=== PATIENT | female | born 1970 | race Caucasian/White ===

== ENCOUNTER → 2016-08-09 | Outpatient (CLI) | payer BC ==
[~2016-08-09] VITALS: Ht 167.6 cm; Wt 65.8 kg
[~2016-08-09] MED LIST: ACET-654 PO; ADVA230A INH; COLA100C PO; COLA50CA3 PO; DICY20TA PO; IBUP200C PO; LINZ145C PO; MOM30SS PO; NS 1,000 ML IV SCH; SING10TA32 PO; SULF400T PO; ULTR50TA PO; VITA200016 PO
--- NOTE | 2016-08-09 08:37 | ROOR ---
Patient Name: Connie Chao Procedure Date: 08/09/2016 8:14 AM Date of : 1970 Age: 46 Room: [facility] Gender: Female Note Status: Finalized Procedure: Colonoscopy Indications: High risk colon cancer surveillance: Personal history of colonic polyps, Last colonoscopy: May 2013 Providers: Reza DANIELSON MD Referring MD: Marina Gipson DO Requesting Provider: Medicines: Monitored Anesthesia Care Complications: No immediate complications. Procedure: Pre-Anesthesia Assessment: - The heart rate, respiratory rate, oxygen saturations, blood pressure, adequacy of pulmonary ventilation, and response to care were monitored throughout the procedure. The Colonoscope was introduced through the anus and advanced to the cecum, identified by appendiceal orifice and ileocecal valve. The colonoscopy was performed without difficulty. The patient tolerated the procedure well. The quality of the bowel preparation was good. Findings: The perianal and digital rectal examinations were normal. (Exam: Complete, Prep: Good or Excellent.) Small Internal Hemorrhoids. The entire examined colon appeared normal on direct and retroflexion views. Impression: - (Exam: Complete, Prep: Good or Excellent.) - Small Internal Hemorrhoids. - The entire examined colon is normal on direct and retroflexion views. - No specimens collected. Recommendation: - Continue present medications. - Repeat colonoscopy in 5 years for surveillance based on personal history of previous adenomatous polyps. Reza Danielson MD Reza DANIELSON MD 08/09/2016 8:36:49 AM This report has been signed electronically. Number of Addenda: 0 Note Initiated On: 08/09/2016 8:14 AM Estimated Blood Loss: Estimated blood loss: none.
[2016-08-09 08:55] VITALS: BP 123/74
== END | disposition home or self-care (01) ==
LOC: M OPP 07:40
PROVIDERS: ATTEND Internal Medicine Gastroenterology
DX: Z12.11 Encounter for screening for malignant neoplasm of colon (principal); K64.8 Other hemorrhoids; J45.909 Unspecified asthma, uncomplicated; Z88.1 Allergy status to other antibiotic agents; Z79.899 Other long term (current) drug therapy; Z79.51 Long term (current) use of inhaled steroids
CPT/HCPCS: 99156; G0105

== ENCOUNTER 2016-10-21 01:24 | Emergency (ER) | payer BC ==
[~2016-10-21] VITALS: Ht 167.6 cm; Wt 65.8 kg
[~2016-10-21 01:24] MED LIST changes: -COLA100C PO; +COLA100C3 PO; -NS 1,000 ML IV SCH
[2016-10-21 01:29] VITALS: BP 134/92
[2016-10-21] MEDS ORDERED: FEXO180T58 (01:35)
[2016-10-21] MEDS ORDERED: MONT10TA2 (01:35)
[2016-10-21] MEDS ORDERED: AZIT250T3 (01:35)
[2016-10-21] MEDS ORDERED: IBUPROFEN 600 MG TAB PO ONE (04:00)
[2016-10-21] MEDS ORDERED: ZOFR4TAB3 PO (04:43)
[2016-10-21] MEDS ORDERED: AUGM875T27 PO (04:43)
[2016-10-21] MEDS ORDERED: NORCO 5/325MG TABLET (BULK FOR ED) PO ONE (04:45)
[2016-10-21] MEDS ORDERED: cefTRIAXone SOD 1 GM VIAL (J0696) IM ONE (04:45)
== END 2016-10-21 05:25 | disposition home or self-care (01) ==
LOC: M ED 02:46
DX: J01.00 Acute maxillary sinusitis, unspecified (principal); Z79.899 Other long term (current) drug therapy; Z79.51 Long term (current) use of inhaled steroids; Z88.1 Allergy status to other antibiotic agents; Z88.2 Allergy status to sulfonamides
CPT/HCPCS: 96372; 99281; J0696

== ENCOUNTER 2018-09-01 13:42 | Day surgery (SDC) | payer BC ==
[~2018-09-01] VITALS: Ht 167.6 cm; Wt 68.5 kg
[~2018-09-01 13:42] MED LIST changes: +AUGM875T28 PO; +AZIT-12; -COLA100C3 PO; +COLA100C5 PO; +FEXO180T58; +LINZ145C; +MONT10TA2; +MULT1TAB10 PO; +PROAAER10 INH; +TUMS500C PO; +ZOFR4TAB14 PO
[2018-09-01] MEDS ORDERED: NS 1,000 ML IV ONE (15:15)
[2018-09-01] MEDS ORDERED: PROPOFOL 200 MG/20 ML VIAL As Ordered ONE (16:32)
[2018-09-01] MEDS ORDERED: LIDOCAINE 2% INJ 100 MG/5 ML SDV (FOR ANES.) As Ordered ONE (16:32)
--- NOTE | 2018-09-01 17:15 | ROOR ---
Patient Name: Connie Chao Procedure Date: 09/01/2018 4:59 PM Date of : 1970 Age: 48 Room: [facility] Gender: Female Note Status: Finalized Procedure: Upper GI endoscopy Indications: Heartburn, Suspected esophageal reflux, Chronic cough Providers: Reza DANIELSON MD Referring MD: Marina Gipson DO Requesting Provider: Medicines: Monitored Anesthesia Care Complications: No immediate complications. Procedure: Pre-Anesthesia Assessment: - The heart rate, respiratory rate, oxygen saturations, blood pressure, adequacy of pulmonary ventilation, and response to care were monitored throughout the procedure. The Endoscope was introduced through the mouth, and advanced to the second part of duodenum. The upper GI endoscopy was accomplished without difficulty. The patient tolerated the procedure well. Findings: The examined esophagus was normal. A single localized erosion was found in the prepyloric region of the stomach. Biopsies were taken with a cold forceps for histology. The exam of the stomach was otherwise normal. The examined duodenum was normal. Impression: - Normal esophagus. - A single tiny (1-2 mm) gastric erosion in the antrum. Biopsied. - The stomach is otherwise normal. - Normal examined duodenum. Recommendation: - Follow an antireflux regimen. - Use Prilosec (omeprazole) 20 mg PO daily for 3 months. - (the script was sent to your pharmacy on file) Reza Danielson MD Reza DANIELSON MD 09/01/2018 5:15:22 PM This report has been signed electronically. Number of Addenda: 0 Note Initiated On: 09/01/2018 4:59 PM Estimated Blood Loss: Estimated blood loss: none.
[2018-09-01 17:30] VITALS: BP 138/86
== END 2018-09-01 17:40 | disposition home or self-care (01) ==
LOC: M OPP 13:42
PROVIDERS: ATTEND Internal Medicine Gastroenterology
DX: K25.9 Gastric ulcer, unspecified as acute or chronic, without hemorrhage or perforation (principal); R12 Heartburn; R05 Cough; Z88.8 Allergy status to other drugs, medicaments and biological substances

== ENCOUNTER → 2020-11-14 | Outpatient (REF) | payer BC ==
[~2020-11-14] MED LIST changes: +MONT10TA10; -MONT10TA2
[2020-11-14 12:27] LABS: APPEARANCE, URINE CLEAR (CLEAR); BACTERIA, URINE AUTO NEGATIVE (NEGATIVE); BILIRUBIN, URINE AUTO NEGATIVE (NEGATIVE); BLOOD, URINE BLOOD NEGATIVE (NEGATIVE); COLOR, URINE YELLOW (YELLOW); GLUCOSE, URINE (UA) AUTO NEGATIVE (NEGATIVE); KETONE, URINE AUTO NEGATIVE (NEGATIVE); LEUKOCYTE ESTERASE, URINE AUTO NEGATIVE (NEGATIVE); NITRITE, URINE AUTO NEGATIVE (NEGATIVE); PROTEIN, URINE AUTO NEGATIVE (NEGATIVE); RBC, URINE AUTO 0 /HPF (0-3); SPECIFIC GRAVITY URINE AUTO 1.017 (1.002-1.035); SQUAMOUS EPITHELIAL CELL UR AU 2 /HPF (0-6); UROBILINOGEN, URINE AUTO 0.2 mg/dL (0.0-2.0); WBC, URINE AUTO 0 /HPF (0-3)
== END ==
LOC: M LAB REF 11:50
PROVIDERS: ATTEND Obstetrics & Gynecology
DX: N39.0 Urinary tract infection, site not specified (principal)

== ENCOUNTER → 2022-02-13 | Outpatient (CLI) | payer BC ==
[~2022-02-13] MED LIST changes: +FEXO-117; -FEXO180T58; -MONT10TA10; +MONT10TA97; +MONT10TA97 PO; +VITMTA PO
== END ==
LOC: M LABSMTC 10:17
PROVIDERS: ATTEND Anesthesiology
DX: Z01.812 Encounter for preprocedural laboratory examination (principal); Z20.822 Contact with and (suspected) exposure to COVID-19

== ENCOUNTER 2022-02-18 07:26 | Day surgery (SDC) | payer BC ==
[~2022-02-18] VITALS: Ht 167.6 cm; Wt 85.3 kg
[~2022-02-18 07:26] MED LIST changes: +NS 1,000 ML IV ONE
[2022-02-18] MEDS ORDERED: LIDOCAINE 2% 100MG/5ML SDV (FOR ANES.) As Ordered ONE (08:35)
[2022-02-18] MEDS ORDERED: propofoL 200 MG/20 ML VIAL As Ordered ONE ×2 (08:35→08:46)
[2022-02-18 09:25] VITALS: BP 148/95
== END 2022-02-18 09:28 | disposition home or self-care (01) ==
LOC: M OPP 07:26
PROVIDERS: ATTEND Internal Medicine Gastroenterology
DX: Z12.11 Encounter for screening for malignant neoplasm of colon (principal); Z86.010 Personal history of colon polyps; K64.8 Other hemorrhoids; J45.909 Unspecified asthma, uncomplicated; Z88.1 Allergy status to other antibiotic agents; Z88.2 Allergy status to sulfonamides; Z88.8 Allergy status to other drugs, medicaments and biological substances; Z79.899 Other long term (current) drug therapy; Z82.49 Family history of ischemic heart disease and other diseases of the circulatory system; Z83.3 Family history of diabetes mellitus

== ENCOUNTER 2023-01-07 07:00 | Outpatient (RCR) | payer BC ==
[~2023-01-07 07:00] MED LIST changes: +MONT-5 PO; -NS 1,000 ML IV ONE; -SING10TA32 PO
== END 2023-01-10 ==
LOC: M PT 07:00
PROVIDERS: ATTEND Orthopaedic Surgery Sports Medicine
DX: M25.511 Pain in right shoulder (principal)

== ENCOUNTER 2023-01-30 07:00 | Outpatient (RCR) | payer BC | END 2023-02-10 | LOC: M PT 07:00 | PROVIDERS: ATTEND Orthopaedic Surgery Sports Medicine | DX: M25.511 Pain in right shoulder (principal) ==

== ENCOUNTER → 2023-06-12 | Outpatient (RCR) | payer BC | LOC: M PT 05-20 09:11 | PROVIDERS: ATTEND Orthopaedic Surgery | DX: M25.511 Pain in right shoulder (principal); S46.011D Strain of muscle(s) and tendon(s) of the rotator cuff of right shoulder, subsequent encounter ==

== ENCOUNTER 2023-07-10 08:00 | Outpatient (RCR) | payer BC | END 2023-07-13 | LOC: M PT 08:00 | PROVIDERS: ATTEND Orthopaedic Surgery | DX: M25.511 Pain in right shoulder (principal); S46.011D Strain of muscle(s) and tendon(s) of the rotator cuff of right shoulder, subsequent encounter ==

== ENCOUNTER 2023-08-07 06:54 | Outpatient (RCR) | payer BC | END 2023-08-13 | LOC: M PT 06:54 | PROVIDERS: ATTEND Orthopaedic Surgery | DX: S46.011D Strain of muscle(s) and tendon(s) of the rotator cuff of right shoulder, subsequent encounter (principal) ==

== ENCOUNTER 2023-08-19 06:58 | Outpatient (RCR) | payer BC | END 2023-09-11 | LOC: M PT 06:58 | PROVIDERS: ATTEND Orthopaedic Surgery | DX: M25.511 Pain in right shoulder (principal); M75.21 Bicipital tendinitis, right shoulder; M75.101 Unspecified rotator cuff tear or rupture of right shoulder, not specified as traumatic ==